=== PATIENT | female | born 1950 | race Caucasian/White ===

== ENCOUNTER 2018-10-25 13:23 | Emergency (ER) | payer MEDICARE, OTHER ==
[2018-10-25] MEDS ORDERED: BUFFERED LIDOCAINE 10 ML SYRINGE SUBQ STA (16:58)
--- NOTE | 2018-10-25 17:00 | ED Physician Documentation ---
PD HPI HEAD INJURY - Stated complaint Stated Complaint: FELL HIT FOREHEAD - Chief complaint Chief Complaint: Laceration - History obtained from History obtained from: Patient - History of Present Illness Mechanism of head injury: Fell (Trip and fall on the Porch today hitting forward and hurting her head on the porch. There was no loss of consciousness. She has some shoulder pain 2. 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 HEENT: Tonsil/Adenoidectomy - Present Medications Home Medications: Ambulatory Orders Medication Instructions Recorded Confirmed ALPRAZolam [Xanax] 0.25 mg ORAL DAILY 12/08/15 12/08/15 Clobetasol Propionate/Emoll 1 unit TOP DAILY 12/08/15 12/08/15 [Clobetasol Emollient 0.05% Crm] Desonide 1 unit TOP DAILY 12/08/15 12/08/15 Diazepam [Valium] 10 mg ORAL DAILY PRN 12/08/15 12/08/15 FLUoxetine [PROzac] 20 mg ORAL DAILY 12/08/15 12/08/15 Nortriptyline [Pamelor] 10 mg ORAL DAILY 12/08/15 12/08/15 predniSONE [Deltasone] 7 mg ORAL DAILY 12/08/15 12/08/15 Hydrocodone/Acetaminophen 1 - 2 each PO Q6H PRN #14 tablet 10/25/18 [Hydrocodon-Acetaminophen 5-325] - Allergies Allergies/Adverse Reactions: Allergies Allergy/AdvReac Type Severity Reaction Status Date / Time hydroxychloroquine Allergy Hives Verified 10/25/18 14:04 - Social History Does the pt smoke?: Yes Smoking Status: Current every day smoker Does the pt drink ETOH?: Yes Does the pt have substance abuse?: No PD ED PE NORMAL - Vitals Vital signs reviewed: Yes - General General: Alert and oriented X 3, No acute distress - HEENT HEENT: PERRL, EOMI, Other (There is a 6 cm vertical laceration in the mid forehead and shorter 3 cm laceration on the right side of forehead. The midline one is actively bleeding. There is no facial bony tenderness. No septal hematoma.) - Neck Neck: Supple, no meningeal sign, No bony TTP - Extremities Extremities: No deformity, No tenderness to palpate, Normal ROM s pain, Other (Full range of motion of both shoulders) - Neuro Neuro: Alert and oriented X 3, Normal speech Eye Opening: Spontaneous Motor: Obeys Commands Verbal: Oriented GCS Score: 15 - Psych Psych: Normal mood, Normal affect Results - Vitals Vitals: Vital Signs - 24 hr 10/25/18 10/25/18 10/25/18 13:59 16:19 18:51 Temperature 36.8 C 37.0 C Heart Rate 95 107 H 93 Respiratory 16 18 17 Rate Blood Pressure 148/93 H 148/101 H 148/99 H O2 Saturation 95 97 97 Oxygen O2 Source Room air - Rads (name of study) CT Head Radiology: EMP read contemporaneously (normal) CT Cspine Radiology: EMP read contemporaneously (No fracture. Multilevel degenerative change. Possible exophytic left thyroid nodule, consider follow-up ultrasound.) Procedures - Laceration (location) R forehead Length in cm: 3 Wound type: Linear, Into subcut fat Anesthesia: Lidocaine 1%, With bicarb Wound Preparation: Irrigated copiously NS Skin layer closure: Prolene, Running, Size #-0 - enter number (6-0) Other: Tetanus UTD Complexity: Simple Mid forehead Length in cm: 6 Wound type: Linear, Into subcut fat Neurovascular status: Sensory intact, Motor intact, Vascular intact Anesthesia: Lidocaine 1%, With bicarb Wound Preparation: Irrigated copiously NS Deep layer closure: Vicryl, size #-0 - enter number (5-0), # sutures - enter number (1) Skin layer closure: [place] (above the hairline), Running, Size #-0 - enter number (6-0 prolone below the hairline) Other: Tetanus UTD Complexity: Intermediate Departure - Departure Disposition: 01 Home, Self Care Clinical Impression: Facial laceration Qualifiers: Encounter type: initial encounter Qualified Code(s): S01.81XA - Laceration without foreign body of other part of head, initial encounter Scalp laceration Qualifiers: Encounter type: initial encounter Qualified Code(s): S01.01XA - Laceration without foreign body of scalp, initial encounter Head injury Qualifiers: Encounter type: initial encounter Qualified Code(s): S09.90XA - Unspecified injury of head, initial encounter Condition: Good Record reviewed to determine appropriate education?: Yes Instructions: ED Head Injury Closed, ED Laceration Facial Sutr Tape Prescriptions: Hydrocodone/Acetaminophen [Hydrocodon-Acetaminophen 5-325] 1 - 2 each PO Q6H PRN #14 tablet PRN Reason: pain Comments: Come back for any signs of infection which would include: Redness, swelling, drainage, increased pain, or fevers. Follow-up with your physician in 7 days for suture removal. Do not drink or drive while taking narcotic pain medication. Note that many narcotic pain relievers also contain Tylenol/acetaminophen. Please ensure that your total dose of acetaminophen from all sources does not exceed 3 g (3000 mg) per day. You may get constipated while on this medication. Take a stool softener such as Colace twice a day while you are on it. Also add an umsu-jyd-cayrjby laxative such as senna or MiraLAX on any day that you do not have a bowel movement. If you received a narcotic pain medication or sedative while in the emergency department, do not drive for the next 24 hours. Your blood pressure was elevated today on check into the emergency department. This does not mean that you have hypertension, it is a common phenomenon to come to the emergency department and have elevated blood pressure. I recommend that you see your primary care physician within the week to have it rechecked when you are feeling better. On the CT of your neck you have a Possible exophytic left thyroid nodule, consider follow-up ultrasound with your physician
[2018-10-25] MEDS ORDERED: BUFFERED LIDOCAINE 10 ML SYRINGE ONE (17:16)
[2018-10-25] MEDS ORDERED: HYDROcod/ACETAM 5/325 MG TABLET PO STA (17:23)
--- NOTE | 2018-10-25 18:48 | CT Report ---
Reason: head inj Procedure Date: 10/25/2018 Accession Number: [id number] / [id number] Procedure: CT - HEAD WO CPT Code: FULL RESULT: EXAM: CT HEAD EXAM DATE: 10/25/2018 06:05 PM. CLINICAL HISTORY: Head injury COMPARISON: None available.. TECHNIQUE: Multiaxial CT images were obtained from the foramen magnum to the vertex. Reformats: Sagittal and coronal. IV contrast: None. In accordance with CT protocol optimization, one or more of the following dose reduction techniques were utilized for this exam: automated exposure control, adjustment of mA and/or KV based on patient size, or use of iterative reconstructive technique. FINDINGS: Parenchyma: No intraparenchymal hemorrhage. No evidence of mass, midline shift, or CT findings of infarction. Plummer-white differentiation is distinct. Extraaxial Spaces: Normal for age. No subdural or epidural collections identified. Ventricles: Normal in size and position. Sinuses and Orbits: Imaged paranasal sinuses, orbits, and mastoids show no significant abnormality. Bones: No evidence of fracture or calvarial defect. Other: There is a frontal scalp laceration. IMPRESSION: No acute intracranial CT abnormality. RADIA
--- NOTE | 2018-10-25 18:55 | CT Report ---
Reason: head inj Procedure Date: 10/25/2018 Accession Number: [id number] / [id number] Procedure: CT - CERVICAL SPINE WO CPT Code: FULL RESULT: EXAM: CT CERVICAL SPINE WITHOUT CONTRAST DATE: 10/25/2018 06:05 PM. HISTORY: Head injury COMPARISONS: None. TECHNIQUE: Thin-section axial images were acquired of the cervical spine without contrast. Post-processing: Coronal and sagittal reformats. Other: None. In accordance with CT protocol optimization, one or more of the following dose reduction techniques were utilized for this exam: automated exposure control, adjustment of mA and/or KV based on patient size, or use of iterative reconstructive technique. FINDINGS: Alignment: No evidence of dislocation. There is reversal of the normal cervical lordosis. Bones: No fracture or bone lesion. Interspace Levels/Facets: There is mild to moderate multilevel facet arthrosis and disk space narrowing. Spinal canal: No significant abnormalities are seen. Other: No evidence of prevertebral soft tissue swelling or apical pneumothorax. There is a 2.0 cm soft tissue nodule within the upper mediastinum which may represent an exophytic thyroid nodule. IMPRESSION: 1. No evidence of cervical spine fracture or dislocation. 2. There is mild to moderate multilevel degenerative disease. 3. Possible exophytic left thyroid 2 cm nodule. As indicated, nonemergent thyroid ultrasound could be used for further evaluation. RADIA
[2018-10-25 19:25] VITALS: BP 151/92
== END 2018-10-25 19:39 | disposition home or self-care (01) ==
LOC: ED 13:23
DX: S01.81XA Laceration without foreign body of other part of head, initial encounter (principal); S01.01XA Laceration without foreign body of scalp, initial encounter; S09.90XA Unspecified injury of head, initial encounter; M25.519 Pain in unspecified shoulder; W01.198A Fall on same level from slipping, tripping and stumbling with subsequent striking against other object, initial encounter; M50.30 Other cervical disc degeneration, unspecified cervical region; R03.0 Elevated blood-pressure reading, without diagnosis of hypertension; F17.200 Nicotine dependence, unspecified, uncomplicated
CPT/HCPCS: 12013; 12053; 70450; 72125; 99283; A9270; 12011

== ENCOUNTER 2018-12-29 09:25 | Outpatient (CLI) | payer MEDICARE, OTHER ==
--- NOTE | 2018-12-30 12:45 | Ultrasound Report ---
Reason: BENIGN NEOPLASM OF MEDIASTINUM Procedure Date: 12/29/2018 Accession Number: [id number] / [id number] Procedure: US - Head or Neck Soft Tissue CPT Code: FULL RESULT: EXAM: THYROID ULTRASOUND EXAM DATE: 12/29/2018 10:32 AM. CLINICAL HISTORY: Benign neoplasm of mediastinum. COMPARISON: CERVICAL SPINE W/O 10/25/2018 6:02 PM. TECHNIQUE: Real time sonographic imaging of the thyroid was performed by the disassembler. Multiple direct customer service representative static images were saved for review. FINDINGS: THYROID GLAND: Right Lobe: 4.2 x 1.6 x 2.1 cm, volume 7.4 cc. Normal background echotexture. Right Lobe Nodules: Inferior pole 1.0 x 0.9 x 1.1 cm solid nodule. Left Lobe: 4.3 x 1.6 x 2.0 cm, volume 7.2 cc. Normal background echotexture. Left Lobe Nodules: 1.3 x 0.8 x 1.1 cm midpole nodule, solid. Inferior pole 0.5 x 0.3 x 0.5 cm hypoechoic nodule, possibly cystic. Isthmus: 0.4 cm AP. Isthmic Nodules: None. LYMPH NODES: No adenopathy demonstrated in the central or lateral compartment. OTHER: Please note that the previously detected mass along the inferior margin of the left thyroid is not part of the thyroid gland and not visible by ultrasound. Review of coronal CT image 24 series 13 demonstrates a 2.1 x 1.4 cm nodule. IMPRESSION: Low suspicion thyroid nodules measuring less than 1.5 cm do not meet criteria for tissue sampling. Please note that the nodule seen on CT is separate from the thyroid gland and not imaged on this study, the previously identified finding remains suspicious for malignancy until proven otherwise. Management recommendations are based on 2015 [place] [employer] Management Guidelines for Adult Patients with Thyroid Nodules and Differentiated Thyroid Cancer. RADIA
== END 2018-12-29 09:26 | disposition home or self-care (01) ==
LOC: DI 09:25
PROVIDERS: ATTEND Registered Nurse
DX: D15.2 Benign neoplasm of mediastinum (principal); E04.2 Nontoxic multinodular goiter
CPT/HCPCS: 76536

== ENCOUNTER 2019-07-14 11:23 | Outpatient (CLI) | payer MEDICARE, OTHER | END 2019-07-14 11:24 | disposition home or self-care (01) | LOC: DI 11:23 | PROVIDERS: ATTEND Internal Medicine | DX: R00.2 Palpitations (principal) | CPT/HCPCS: 93306 ==

== ENCOUNTER 2019-12-09 08:16 | Emergency (ER) | payer MEDICARE, OTHER ==
[2019-12-09] MEDS ORDERED: ADENOSINE 6 MG/2 ML VIAL IVP STA (08:28)
[2019-12-09] MEDS ORDERED: SODIUM CHLORIDE 0.9% 1,000 ML IV ONE (08:39)
--- NOTE | 2019-12-09 08:42 | ED Physician Documentation ---
History of Present Illness - Stated complaint Stated Complaint: RAPID HEART RATE - History obtained from History obtained from: Patient - History of Present Illness Timing: Today Pain level max: 0 Pain level now: 0 - Additonal information Additional information: 69-year-old female Presents to the emergency department with palpitations today. Has a history of SVT. Normally takes metoprolol when this occurs. She states she has an episode every few months. She took an dose of metoprolol this morning, the prescription was from 2016. No relief of symptoms so came in for evaluation. No chest pain. No shortness of breath. 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 HEENT: Tonsil/Adenoidectomy - Present Medications Home Medications: Ambulatory Orders Medication Instructions Recorded Confirmed ALPRAZolam [Xanax] 0.25 mg ORAL DAILY 12/08/15 12/08/15 Clobetasol Propionate/Emoll 1 unit TOP DAILY 12/08/15 12/08/15 [Clobetasol Emollient 0.05% Crm] Desonide 1 unit TOP DAILY 12/08/15 12/08/15 Diazepam [Valium] 10 mg ORAL DAILY PRN 12/08/15 12/08/15 FLUoxetine [PROzac] 20 mg ORAL DAILY 12/08/15 12/08/15 Nortriptyline [Pamelor] 10 mg ORAL DAILY 12/08/15 12/08/15 predniSONE [Deltasone] 7 mg ORAL DAILY 12/08/15 12/08/15 Hydrocodone/Acetaminophen 1 - 2 each PO Q6H PRN #14 tablet 10/25/18 [Hydrocodon-Acetaminophen 5-325] - Allergies Allergies/Adverse Reactions: Allergies Allergy/AdvReac Type Severity Reaction Status Date / Time hydroxychloroquine Allergy Hives Verified 12/09/19 08:45 - Social History Does the pt smoke?: Yes Smoking Status: Current every day smoker Does the pt drink ETOH?: Yes Does the pt have substance abuse?: No - Immunizations Immunizations are current?: Yes PD ED PE NORMAL - Vitals Vital signs reviewed: Yes - General General: Alert and oriented X 3, No acute distress, Well developed/nourished - HEENT HEENT: Moist mucous membranes - Neck Neck: Supple, no meningeal sign - Cardiac Cardiac: Other (Tachycardic, regular) - Respiratory Respiratory: No respiratory distress, Clear bilaterally - Abdomen Abdomen: Soft, Non tender, Non distended - Derm Derm: Warm and dry - Extremities Extremities: No edema, No calf tenderness / cord - Neuro Neuro: Alert and oriented X 3 - Psych Psych: Normal mood, Normal affect Results - Vitals Vitals: Vital Signs - 24 hr 12/09/19 12/09/19 12/09/19 08:20 08:45 08:53 Temperature 36.7 C Heart Rate 175 H 99 102 H Respiratory 18 14 15 Rate Blood Pressure 153/116 H 143/105 H 130/86 H O2 Saturation 94 94 95 Oxygen O2 Source Room air - EKG (time done) 0823 Rate: Rate (enter#) (173) Rhythm: SVT Hunt: Normal QRS: Normal Ischemia: Non specific changes (rate related) 0844 Rate: Rate (enter#) (101) Rhythm: Sinus tachycardia Hunt: Normal Intervals: Normal [place] QRS: Normal Ischemia: Normal ST segments PD MEDICAL DECISION MAKING - ED course Complexity details: reviewed old records, reviewed results, re-evaluated patient, considered differential, d/w patient ED course: Patient with recurrent SVT. An IV was started and 6 mg of adenosine was given. She converted to a normal sinus rhythm. Otherwise asymptomatic. Vagal maneuvers were tried before adenosine, these did not work however. Patient will follow-up with her doctor for further care. She does have a new prescription of metoprolol for home already. Patient counseled regarding signs and symptoms for which I believe and urgent re-evaluation would be necessary. Patient with good understanding of and agreement to plan and is comfortable going home at this time This document was made in part using voice recognition software. While efforts are made to proofread this document, sound alike and grammatical errors may occur. Departure - Departure Disposition: 01 Home, Self Care Clinical Impression: Supraventricular tachycardia Condition: Good Instructions: ED Tachycardia Pat PSVT Follow-Up: Ashley Pa ARNP [Primary Care Provider] - Within 1 week Comments: Return if you worsen. You can use your metoprolol at home as needed. Follow-up with your doctor for further care.
[2019-12-09 09:05] VITALS: BP 121/80
== END 2019-12-09 09:05 | disposition home or self-care (01) ==
LOC: ED 08:16
DX: I47.1 Supraventricular tachycardia (principal); F17.200 Nicotine dependence, unspecified, uncomplicated
CPT/HCPCS: 93005; 96361; 96374; 99284; J0153

== ENCOUNTER 2020-12-11 17:16 | Emergency (ER) | payer MEDICARE, OTHER ==
[2020-12-11 17:35] VITALS: BP 152/92
--- NOTE | 2020-12-11 17:48 | ED Physician Documentation ---
History of Present Illness - Stated complaint Stated Complaint: IRREGULAR HEARTBEAT - Chief complaint Chief Complaint: Cardiac - History obtained from History obtained from: Patient - History of Present Illness Timing: Today Pain level max: 0 Pain level now: 0 - Additonal information Additional information: 70-year-old female presents to the emergency department with an elevated pulse rate at home tonight. Similar to prior episodes of her SVT. She took her metoprolol and symptoms resolved. Currently asymptomatic. No chest pain. No shortness of breath. Nothing makes it better or worse. This been ongoing issue for years. Review of Systems Ten Systems: 10 systems reviewed and negative Constitutional: denies: Fever, Chills Nose: denies: Rhinorrhea / runny nose, Congestion Cardiac: reports: Palpitations. 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 HEENT: Tonsil/Adenoidectomy - Present Medications Home Medications: Ambulatory Orders Medication Instructions Recorded Confirmed ALPRAZolam [Xanax] 0.25 mg ORAL DAILY 12/08/15 12/08/15 Clobetasol Propionate/Emoll 1 unit TOP DAILY PRN 12/08/15 12/08/15 [Clobetasol Emollient 0.05% Crm] Desonide 1 unit TOP DAILY PRN 12/08/15 12/08/15 Diazepam [Valium] 10 mg ORAL DAILY PRN 12/08/15 12/08/15 FLUoxetine [PROzac] 40 mg ORAL DAILY 12/08/15 12/08/15 predniSONE [Deltasone] 1 mg ORAL DAILY PRN 12/08/15 12/08/15 ARIPiprazole [Aripiprazole] 10 mg DAILY 12/09/19 12/09/19 Alprazolam [Xanax] 0.25 mg PRN 12/09/19 Folic Acid 1 mg DAILY 12/09/19 12/09/19 Metoprolol Tartrate 50 mg PO PRN 12/09/19 12/09/19 metHOTREXate sodium [Trexall] 15 mg PO 12/09/19 12/09/19 - Allergies Allergies/Adverse Reactions: Allergies Allergy/AdvReac Type Severity Reaction Status Date / Time hydroxychloroquine Allergy Hives Verified 12/11/20 17:26 - Social History Does the pt smoke?: Yes Smoking Status: Current every day smoker Does the pt drink ETOH?: Yes Does the pt have substance abuse?: No - Immunizations Immunizations are current?: Yes - POLST Patient has POLST: No PD ED PE NORMAL - Vitals Vital signs reviewed: Yes - General General: Alert and oriented X 3, No acute distress, Well developed/nourished - HEENT HEENT: PERRL, Moist mucous membranes - Neck Neck: Supple, no meningeal sign - Cardiac Cardiac: RRR, Strong equal pulses - Respiratory Respiratory: No respiratory distress, Clear bilaterally - Abdomen Abdomen: Soft, Non tender, Non distended - Derm Derm: Warm and dry - Extremities Extremities: No edema, No calf tenderness / cord - Neuro Neuro: Alert and oriented X 3 - Psych Psych: Normal mood, Normal affect Results - Vitals Vitals: Vital Signs - 24 hr 12/11/20 12/11/20 17:24 17:34 Heart Rate 72 72 Respiratory 21 17 Rate Blood Pressure 147/68 H 152/92 H O2 Saturation 95 95 Oxygen O2 Source Room air - EKG (time done) 1727 Rate: Rate (enter#) (72) Rhythm: NSR [place]: Normal Intervals: Normal [place] QRS: Normal Ischemia: Normal ST segments - Rads (name of study) cxr Radiology: Prelim report reviewed, EMP read contemporaneously, See rad report (No acute pulmonary process. ) PD MEDICAL DECISION MAKING - ED course Complexity details: considered differential, d/w patient ED course: 70-year-old female with a longstanding history of SVT sounds like she had an SVT episode at home today. Resolved with taking her own metoprolol. Currently asymptomatic. No other work-up indicated at this time. Patient counseled regarding signs and symptoms for which I believe and urgent re-evaluation would be necessary. Patient with good understanding of and agreement to plan and is comfortable going home at this time This document was made in part using voice recognition software. While efforts are made to proofread this document, sound alike and grammatical errors may occur. Departure - Departure Disposition: 01 Home, Self Care Clinical Impression: SVT (supraventricular tachycardia) Condition: Poor Instructions: Understanding Supraventricular Tachycardia SVT, Treatment for Supraventricular Tachycardia SVT, ED Tachycardia Pat PSVT Follow-Up: Ashley Pa ARNP [Primary Care Provider] - Within 1 week Comments: You appear to have had an episode of SVT today. Continue your metoprolol as previously prescribed. Follow-up with your doctor for further care. Return if you worsen Discharge Date/Time: 12/11/20 17:54
--- NOTE | 2020-12-11 17:51 | XRAY Report ---
PROCEDURE: Chest 1 View X-Ray INDICATIONS: Chest pain TECHNIQUE: One view of the chest was acquired. COMPARISON: None FINDINGS: Surgical changes and devices: None. Lungs and pleura: No pleural effusions or pneumothorax. Lungs are clear. Mediastinum: Mediastinal contours appear normal. Heart size is mildly prominent. Bones and chest wall: No suspicious bony lesions. Overlying soft tissues appear unremarkable. IMPRESSION: No acute pulmonary process. Reviewed by: Maddy Mclaughlin MD on 12/11/2020 5:49 PM PDT Approved by: Maddy Mclaughlin MD on 12/11/2020 5:49 PM PDT Station ID: [id number]
== END 2020-12-11 17:54 | disposition home or self-care (01) ==
LOC: ED 17:16
DX: I47.1 Supraventricular tachycardia (principal); F17.200 Nicotine dependence, unspecified, uncomplicated
CPT/HCPCS: 80053; 83690; 84484; 85025; 93005; 99284

== ENCOUNTER 2021-04-08 08:00 | Outpatient (CLI) | payer MEDICARE, OTHER ==
--- NOTE | 2021-04-08 08:08 | XRAY Report ---
PROCEDURE: Foot 3 View RT INDICATIONS: PAIN IN RIGHT FOOT TECHNIQUE: 3 views of the foot were acquired. COMPARISON: None FINDINGS: Bones: No fractures or dislocations. There is mild hallux valgus. Osteoarthritic changes are seen in first MTP joint and throughout interphalangeal joints more prominent at fifth PIP joint. Osteoarthri tic changes also noted at fifth TMT joint. Small dorsal calcaneal enthesophyte is seen. No suspiciou s bony lesions. Soft tissues: No tibiotalar joint effusion. Achilles tendon appears normal. IMPRESSION: Mild hallux valgus. 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 No fracture or dislocation. Small dorsal calcaneal enthesophyte. Reviewed by: Chace Jennings MD on 04/08/2021 8:07 AM PDT Approved by: Chace Jennings MD on 04/08/2021 8:07 AM PDT Station ID: [id number]
== END 2021-04-08 23:59 | disposition home or self-care (01) ==
LOC: DI.S 08:00
PROVIDERS: ATTEND Physician Assistant
DX: M79.671 Pain in right foot (principal); M20.11 Hallux valgus (acquired), right foot; M19.071 Primary osteoarthritis, right ankle and foot

== ENCOUNTER 2022-01-10 11:47 | Outpatient (CLI) | payer MEDICARE, OTHER ==
[2022-01-10 14:54] LABS: BASOPHILS # (AUTO) 0.1 10^3/uL (0.0-0.1); BASOPHILS % (AUTO) 0.7 %; EOSINOPHILS % (AUTO) 0.6 %; HCT - HEMATOCRIT 42.7 % (37.0-47.0); HGB - HEMOGLOBIN 14.2 g/dL (12.0-16.0); LYMPHOCYTES # (AUTO) 1.8 10^3/uL (1.5-3.5); LYMPHOCYTES % (AUTO) 26.1 %; MEAN CORPUSCULAR HEMOGLOBIN 32.3 pg (27.0-31.0); MEAN CORPUSCULAR HGB CONC 33.3 g/dL (32.0-36.0); MEAN PLATELET VOLUME 11.3 fL (7.9-10.8); MONOCYTES # (AUTO) 0.4 10^3/uL (0.0-1.0); MONOCYTES % (AUTO) 5.3 %; NEUTROPHILS # (AUTO) 4.7 10^3/uL (1.5-6.6); NEUTROPHILS % (AUTO) 67.2 %; PLT - PLATELET COUNT 239 10^3/uL (130-450); RED CELL DISTRIBUTION WIDTH 13.3 % (12.0-15.0); WHITE BLOOD COUNT 6.9 x10^3/uL (4.8-10.8)
[2022-01-10 15:25] LABS: ALBUMIN/GLOBULIN RATIO 1.2 (1.0-2.2); ALKALINE PHOSPHATASE 70 IU/L (42-121); ALT ALANINE AMINOTRANSFERASE 18 IU/L (10-60); AST ASPARTATE AMINOTRANSFERASE 22 IU/L (10-42); BILIRUBIN,TOTAL 0.6 mg/dL (0.2-1.0); BUN - BLOOD UREA NITROGEN 16 mg/dL (6-20); CALCIUM 10.5 mg/dL (8.5-10.3); CARBON DIOXIDE - CO2 27 mmol/L (21-32); CHLORIDE 106 mmol/L (101-111); CHOL/HDL RATIO 2.4 (<4.4); CHOLESTEROL 208 mg/dL; CREATININE 0.7 mg/dL (0.4-1.0); GFR - MDRD 82 (>89); GLUCOSE 104 mg/dL (70-100); HDL CHOLESTEROL 85 mg/dL; LDL CHOLESTEROL,CALCULATED 101 mg/dL; LDL/HDL RATIO 1.2 (<4.4); POTASSIUM 3.9 mmol/L (3.5-5.0); SODIUM 143 mmol/L (135-145); TOTAL PROTEIN 7.4 g/dL (6.7-8.2); TRIGLYCERIDES 108 mg/dL; VLDL CHOLESTEROL 22 mg/dL
[2022-01-10 16:32] LABS: CRP - C-REACTIVE PROTEIN < 1.0 mg/dL (0-1.0)
== END 2022-01-10 11:48 | disposition home or self-care (01) ==
LOC: LAB.S 11:47
PROVIDERS: ATTEND Internal Medicine Rheumatology
DX: Z79.899 Other long term (current) drug therapy (principal); M05.9 Rheumatoid arthritis with rheumatoid factor, unspecified; E78.5 Hyperlipidemia, unspecified
CPT/HCPCS: 36415; 80053; 80061; 83721; 85025; 85651; 86140

== ENCOUNTER 2022-04-30 14:40 | Outpatient (CLI) | payer MEDICARE, OTHER ==
--- NOTE | 2022-04-30 15:02 | XRAY Report ---
PROCEDURE: Shoulder 3 View RT INDICATIONS: SHOULDER JOINT PAIN, RIGHT TECHNIQUE: 3 views of the shoulder were acquired. COMPARISON: None. FINDINGS: Bones: No fractures or dislocations. No suspicious bony lesions. Visualized ribs appear intact. S evere acromioclavicular narrowing is present. Soft tissues: No suspicious soft tissue calcifications. IMPRESSION: Osteoarthritic change at the acromioclavicular joint Reviewed by: Maddy Mclaughlin MD on 04/30/2022 3:01 PM PDT Approved by: Maddy Mclaughlin MD on 04/30/2022 3:01 PM PDT Station ID: [id number]
== END 2022-04-30 14:41 | disposition home or self-care (01) ==
LOC: DI.S 14:40
PROVIDERS: ATTEND Physician Assistant Medical
DX: M19.011 Primary osteoarthritis, right shoulder (principal)

== ENCOUNTER 2022-06-03 11:39 | Outpatient (CLI) | payer MEDICARE, OTHER ==
--- NOTE | 2022-06-03 17:59 | CT Report ---
PROCEDURE: Low Dose Lung Cancer Screen INDICATIONS: SCREENING FOR LUNG CA TECHNIQUE: Noncontrast low-dose axial images were acquired from the pulmonary apices to the posterior costophren ic angles. Multiplanar MIP reformats were then reconstructed. For radiation dose reduction, the follo wing was used: automated exposure control, adjustment of mA and/or kV according to patient size. COMPARISON: None. FINDINGS: Image quality: Excellent. Lungs and pleura: Mild emphysematous changes noted without pulmonary nodule, pleural effusion or pne umothorax Mediastinum: Heart size is normal. No pericardial effusion. No mediastinal adenopathy by size crit eria. Thoracic aorta and central pulmonary arteries are normal in size. Esophagus is normal in shawna mauri. No hiatal hernia. Bones and chest wall: No suspicious bony lesions. No vertebral body compression fractures. No axil devante or supraclavicular adenopathy by size criteria. The thyroid is normal in size and there are no incidental findings. Mild degenerative disc disease and arthropathy. Abdomen: Visualized upper abdomen solid organs and bowel loops appear normal in the absence of contr ast. IMPRESSION: 1. Mild emphysematous changes without pulmonary nodule, pleural effusion or pneumothorax. Lung RADS category 1: Negative. Continue annual screening Reviewed by: Ryan Drew MD on 06/03/2022 4:57 PM AKDT Approved by: Ryan Drew MD on 06/03/2022 4:57 PM AKDT Station ID: [id number]
== END 2022-06-03 11:40 | disposition home or self-care (01) ==
LOC: DI 11:39
PROVIDERS: ATTEND Nurse Practitioner Family
DX: Z12.2 Encounter for screening for malignant neoplasm of respiratory organs (principal); J43.9 Emphysema, unspecified; Z87.891 Personal history of nicotine dependence

== ENCOUNTER 2023-04-08 10:25 | Outpatient (CLI) | payer MEDICARE, OTHER ==
--- NOTE | 2023-04-08 20:39 | CT Report ---
PROCEDURE: SINUS SCREENING WO INDICATIONS: PAIN IN FACE TECHNIQUE: Noncontrast 3.0 mm axial images acquired from the frontal sinuses to the mid-sella, with coronal and sagittal reformats. For radiation dose reduction, the following was used: automated exposure control , adjustment of mA and/or kV according to patient size. COMPARISON: None. FINDINGS: Image quality: Excellent. Maxillary Sinuses: Small pedunculated soft tissue density noted associated with the medial roof of th e right maxillary sinus measuring 9 x 6 mm. Small bilateral retention cysts present. No maxillary sin us mucosal thickening or remodeling Both ostiomeatal units are patent. There is incidental pneumatiza tion of the right middle turbinate Ethmoid Air Cells: No bony remodeling or destruction. Sinuses are clear. Sphenoid Sinuses: No bony remodeling or destruction. Sinuses are clear. Frontal Sinuses: Small retention cyst in the left lateral recess. No remodeling Ostiomeatal Complexes: Ostiomeatal complexes are patent. No Rafat cells. Miscellaneous: Visualized intra-orbital contents are normal. No nasal septal deviation. Maxillary de ntal implants extending into the left maxillary sinus floor IMPRESSION: Right maxillary sinus polyp versus retention cyst. There is no mucosal thickening or remodeling. Incidental right mirtha bullosa Reviewed by: Ryan Drew MD on 04/08/2023 7:38 PM BO Approved by: Ryan Drew MD on 04/08/2023 7:38 PM AKDT Station ID: [id number]
== END 2023-04-08 10:26 | disposition home or self-care (01) ==
LOC: DI 10:25
PROVIDERS: ATTEND Nurse Practitioner Family
DX: R51.9 Headache, unspecified (principal); R93.0 Abnormal findings on diagnostic imaging of skull and head, not elsewhere classified

== ENCOUNTER 2024-04-02 18:48 | Outpatient (CLI) | payer MEDICARE, OTHER | END 2024-04-02 18:49 | disposition EMS.NT | LOC: EMS 18:48 | DX: S51.811A Laceration without foreign body of right forearm, initial encounter (principal); R07.81 Pleurodynia; W18.09XA Striking against other object with subsequent fall, initial encounter; Y92.007 Garden or yard of unspecified non-institutional (private) residence as the place of occurrence of the external cause ==

== ENCOUNTER 2024-04-02 19:46 | Emergency (ER) | payer MEDICARE, OTHER ==
--- NOTE | 2024-04-02 20:33 | ED Physician Documentation ---
PD HPI SKIN - Stated complaint Stated Complaint: RT ARM INJ - Chief complaint Chief Complaint: Laceration - History obtained from History obtained from: Patient - Additional information Additional information: 74-year-old female presents by private vehicle for evaluation of right forearm skin tear and right sided back pain. She states that she was gardening outside when she slipped, hitting her right forearm against some bushes and falling backwards into a retaining wall. She states that she is up-to-date on her tetanus vaccination. Denies hitting her head, denies loss of consciousness, denies use of blood thinners. Review of Systems Constitutional: denies: Fever, Chills Skin: reports: Abrasion (s). denies: Rash, Lesions, Laceration (s) Musculoskeletal: reports: Back pain, Extremity pain. 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 HEENT: Tonsil/Adenoidectomy - Present Medications Home Medications: Ambulatory Orders Medication Instructions Recorded Confirmed ALPRAZolam [Xanax] 0.25 mg ORAL DAILY 12/08/15 12/08/15 Clobetasol Propionate/Emoll 1 unit TOP DAILY PRN 12/08/15 12/08/15 [Clobetasol Emollient 0.05% Crm] Desonide 1 unit TOP DAILY PRN 12/08/15 12/08/15 Diazepam [Valium] 10 mg ORAL DAILY PRN 12/08/15 12/08/15 FLUoxetine [PROzac] 40 mg ORAL DAILY 12/08/15 12/08/15 predniSONE [Deltasone] 1 mg ORAL DAILY PRN 12/08/15 12/08/15 ARIPiprazole [Aripiprazole] 10 mg DAILY 12/09/19 12/09/19 Alprazolam [Xanax] 0.25 mg PRN 12/09/19 Folic Acid 1 mg DAILY 12/09/19 12/09/19 Metoprolol Tartrate 50 mg PO PRN 12/09/19 12/09/19 metHOTREXate sodium [Trexall] 15 mg PO 12/09/19 12/09/19 - Allergies Allergies/Adverse Reactions: Allergies Allergy/AdvReac Type Severity Reaction Status Date / Time hydroxychloroquine Allergy Hives Verified 04/02/24 20:03 - Social History Does the pt smoke?: Yes Smoking Status: Current every day smoker Does the pt drink ETOH?: Yes Does the pt have substance abuse?: No - Immunizations Immunizations are current?: Yes - POLST Patient has POLST: No PD ED PE NORMAL - Vitals Vital signs reviewed: Yes - General General: Alert and oriented X 3, No acute distress, Well developed/nourished - HEENT HEENT: Atraumatic - Cardiac Cardiac: RRR - Respiratory Respiratory: No respiratory distress - Back Back: No spinal TTP, Other (R sided paraspinal tenderness, no crepitus) - Derm Derm: Normal color, Warm and dry, Other (large 6cm linear skin tear dorsal R forearm, no active bleeding, no foreign body) - Neuro Neuro: Alert and oriented X 3, 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 Patient is up-to-date on her tetanus shot. She did drive herself here today so cannot give sedating medications for pain. Patient's wound cleaned by nursing staff and nonadherent bandage applied. X-ray imaging negative for right-sided rib fractures. Patient states that her pain is well-controlled after Tylenol and she states that she will manage at home. Departure - Departure Disposition: 01 Home, Self Care Clinical Impression: Skin tear of forearm without complication, Back pain Condition: Stable Instructions: ED Laceration Ext Sutr Stap Tape Comments: Your x-rays did not show any fracture. Change your dressings daily you may apply ice to your areas of soreness and take mpit-rrn-inascid pain medications as needed. Forms: PCP List Discharge Date/Time: 04/02/24 22:53
[2024-04-02] MEDS: ACETAMINOPHEN 500 MG TABLET PO STA (20:54)
[2024-04-02] MEDS: LIDOCAINE PATCH 4% TOP STA (20:56)
--- NOTE | 2024-04-02 22:45 | XRAY Report ---
PROCEDURE: Ribs w/PA Chest 3+V RT INDICATIONS: FALL INTO WALL, R RIB PAIN TECHNIQUE: 2 views of the ribs were acquired, along with a single view chest. COMPARISON: None. FINDINGS: Surgical changes and devices: None. Bones and chest wall: No fractures or dislocations. No suspicious bony lesions. Overlying soft tis sues appear unremarkable. Lungs and pleura: No pleural effusions or pneumothorax. Lungs appear clear. Mediastinum: Mediastinal contours appear normal. Heart size is normal. IMPRESSION: No displaced rib fracture or pneumothorax. Reviewed by: Laureano Greco MD on 04/02/2024 10:43 PM PDT Approved by: Laureano Greco MD on 04/02/2024 10:43 PM PDT Station ID: [id number]
[2024-04-02 22:59] VITALS: BP 130/80; O2SAT 100
== END 2024-04-02 22:53 | disposition home or self-care (01) ==
LOC: ED 19:46
DX: S51.811A Laceration without foreign body of right forearm, initial encounter (principal); M54.6 Pain in thoracic spine; R07.81 Pleurodynia; F41.9 Anxiety disorder, unspecified; F32.A Depression, unspecified; F17.200 Nicotine dependence, unspecified, uncomplicated; W01.198A Fall on same level from slipping, tripping and stumbling with subsequent striking against other object, initial encounter; Y92.096 Garden or yard of other non-institutional residence as the place of occurrence of the external cause
CPT/HCPCS: 71101; 99283; A9270